=== PATIENT | female | born 1975 | race Caucasian/White ===

== ENCOUNTER → 2016-10-20 | Day surgery (SDC) | payer BC ==
--- NOTE | 2016-10-12 20:13 | HP ---
PREOPERATIVE HISTORY AND PHYSICAL: DATE OF SURGERY: 10/20/16 PROCEDURE: Right wrist ganglion cyst excision. CHIEF COMPLAINT: Cyst, right wrist. HISTORY OF PRESENT ILLNESS: This is a 41-year-old female complaining of a cyst on her right wrist that has been present for the past several months. She feels it is gradually getting larger and would like to have it removed. She has a history of a similarly located cyst on her left wrist that was removed in the fall of 2016 and she has done well with that. She is consented to proceed with cyst excision from her right wrist. PAST MEDICAL HISTORY: Unremarkable. PAST SURGICAL HISTORY: 1. Left wrist ganglion cyst excision in . 2. Cholecystectomy in 2008. MEDICATIONS: Multivitamin. ALLERGIES: ORTHO TRI-CYCLEN, which caused high liver enzymes. FAMILY MEDICAL HISTORY: 1. Hypertension. 2. Diabetes type 2. 3. Cardiovascular disease. 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 She denies tobacco use, illicit drug use and alcohol use. REVIEW OF SYSTEMS: General: Negative for fevers, chills, or night sweats. No known anesthesia problems. HEENT: Negative for headache, lightheadedness, or syncopal episodes. Integumentary: Negative for abrasions, lesions, or open wounds. Cardiothoracic: Negative for chest pain, palpitations, or edema. Negative for hypertension. Pulmonary: Negative for shortness of breath with exertion, chronic cough or COPD. GI: Negative for nausea, vomiting, diarrhea, constipation or GERD. : Negative for nocturia, urinary frequency, urgency, history of UTIs or kidney problems. Musculoskeletal: Positive for current complaint. Negative for chronic or intermittent back pain or history of fractures. Neurological: Negative for paresthesias, numbness, history of seizure, stroke, or epilepsy. Endocrine: Negative for diabetes or thyroid issues. Hematological: Negative for easy bruising, anemia, excessive bleeding or history of DVT. Infectious Disease: Negative for history of MRSA, hepatitis C, HIV. PHYSICAL EXAMINATION GENERAL: Well-developed, well-nourished 41-year-old female, in no acute distress. VITALS SIGNS: Height 5 feet 5 inches, weight 167 pounds. Pulse rate 73, blood pressure 107/68. HEENT: Normocephalic, atraumatic. Pupils are equal, round, and reactive to light and accommodation. Extraocular movements are intact. NECK: Supple. No palpable lymph nodes. Throat is clear. CARDIOTHORACIC: Regular rate and rhythm. S1 and S2. No murmurs, rubs, or gallops. No edema. PULMONARY: Lungs are clear to auscultation bilaterally. No wheezes, rales, or rhonchi. ABDOMEN: Positive bowel sounds, soft, nontender. MUSCULOSKELETAL: On exam of the right wrist, there is approximately 1 cm in diameter cystic mass on the ulnar aspect of the wrist proximal to the distal radioulnar joint between the ECU and the FCU tendons. Sensation is intact. Full range of motion at the wrist. NEUROLOGICAL: Alert and oriented x3. Cranial nerves II through XII are intact. Sensation is intact to light touch. IMPRESSION: Right wrist ganglion cyst. PLAN: The patient is scheduled to undergo a right wrist ganglion cyst excision with Dr. Cotter on 10/20/16. She will return to the office 10 to 14 days postop for followup and suture removal. A prescription for Ultracet was e-scribed to the patient's pharmacy for postoperative pain management. JERMAINE MONTGOMERY [id number]/[facility] #: [id number] ALISE
[~2016-10-20] MED LIST: Buffered Lidocaine 1% SYR 3ML* 3 ML/SYR SYRINGE INTRADERM ONE; Buffered Lidocaine 1% SYR 3ML* 3 ML/SYR SYRINGE ONE; Lidocaine 1% INJ* 10 MG/ML 30 ML SDV ONE; Propofol* 10 MG/ML 20 ML BTL IV PUSH ONE; Remifentanil* 2 MG VIAL ONE; ceFAZolin 2 GM PREMIX (*) 2 GM/50 ML BAG IVPB ONE
[2016-10-20 11:34] VITALS: BP 114/64
--- NOTE | 2016-10-20 20:51 | OP ---
DATE OF OPERATION: 10/20/16 [facility] DATE OF : 77 SURGEON: Dr. Cotter HARD CANDY BATCH MIXER: JERMAINE Rahman ANESTHESIOLOGIST: Fermin Landon MD ANESTHESIA: Local MAC. PRE-OP DIAGNOSIS: Ganglion cyst of the right wrist. POST-OP DIAGNOSIS: Ganglion cyst of the right wrist. OPERATIVE PROCEDURE: Removal, right wrist ganglion cyst. ESTIMATED BLOOD LOSS: Zero. TOURNIQUET TIME: About 15 minutes. INDICATION FOR PROCEDURE: Felicia Garcia is a 41-year-old woman who had a ganglion cyst on her left wrist, which was causing impingement on her ulnar nerve. This was removed and she did very well after that. She feels a similar mass on her right wrist in the same area and she presents for removal. DESCRIPTION OF PROCEDURE: The patient was brought to the operating room, was given a sedation anesthetic, and a local infiltration of 10 cc of 1% plain lidocaine overlying the mass in her right wrist. The skin of her right upper extremity was prepped and draped in the usual sterile fashion. The hand and forearm were exsanguinated and the tourniquet elevated to 250 mmHg. A longitudinal incision was made over the mass, which was on the volar ulnar aspect of the wrist. We dissected bluntly through the subcutaneous tissue. There was a ganglion cyst emanating from the distal radioulnar joint. There was also some fatty tissue, which felt abnormal as well and this was sent for pathology. The wound was irrigated and the skin edges reapproximated with 4-0 nylon suture. The wound was dressed with Xeroform, 4x4, Webril, and an Petey wrap. The patient tolerated the procedure well and was brought to the recovery room in good condition. [id number]/[facility] #: [id number] MTDD
== END | disposition home or self-care (01) ==
LOC: OREAST 08:10
PROVIDERS: ATTEND Orthopaedic Surgery
DX: M67.431 Ganglion, right wrist (principal)
CPT/HCPCS: 88305; J0690; J2704